=== PATIENT | male | born 1985 | race Caucasian/White ===

== ENCOUNTER 2025-01-04 08:56 | Day surgery (SDC) | payer BC, OTHER ==
[2025-01-04] MEDS: Lactated Ringers 1,000 ML IV SCH (09:38)
[2025-01-04] MEDS ORDERED: propofoL 500 MG/50 ML 50 ML ONE (09:44)
[2025-01-04] MEDS ORDERED: Lactated Ringers 1,000 ML IV SCH (11:00)
== END 2025-01-04 11:52 | disposition home or self-care (01) ==
LOC: MW.SDS 08:56
PROVIDERS: ATTEND Surgery
DX: D12.5 Benign neoplasm of sigmoid colon (principal); K62.5 Hemorrhage of anus and rectum; I10 Essential (primary) hypertension; E78.00 Pure hypercholesterolemia, unspecified; Z79.899 Other long term (current) drug therapy
CPT/HCPCS: 00811; J2704; J7120